=== PATIENT | male | born 1960 | race American Indian/Alaskan Native ===

== ENCOUNTER 2019-04-20 08:35 | Outpatient (CLI) | payer OTHER | END 2019-04-20 08:39 | disposition home or self-care (01) | LOC: RAD 08:35 | DX: I10 Essential (primary) hypertension (principal) ==

== ENCOUNTER → 2020-05-27 | Outpatient (CLI) | payer OTHER | END | disposition home or self-care (01) | LOC: RAD 13:07 | PROVIDERS: ATTEND Family Medicine Adult Medicine | DX: G72.89 Other specified myopathies (principal); M54.5 Low back pain ==

== ENCOUNTER 2025-07-26 08:02 | Outpatient (CLI) | payer OTHER | END 2025-07-26 08:07 | disposition home or self-care (01) | LOC: SONOGRAMA 08:02 | DX: N18.30 Chronic kidney disease, stage 3 unspecified (principal) ==